=== PATIENT | female | born 1995 | race Caucasian/White ===

== ENCOUNTER 2020-12-17 13:51 | Emergency (ER) | payer OTHER ==
[2020-12-17] MEDS ORDERED: Acetaminophen/oxyCODONE 325-5 MG Tab PO STA (14:23)
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
[2020-12-17] MEDS ORDERED: Bacitracin Oint 1 GM U/D Packet TOP ONE (15:12)
[2020-12-17] MEDS ORDERED: Bacitracin Oint 1 GM U/D Packet ONE (15:13)
--- NOTE | 2020-12-19 12:16 | CR ---
Wrist Comp Min 3V Lt CLINICAL HISTORY: Injury FINDINGS: There is a transverse slightly angulated fracture of the distal radius. The soft tissue swelling
--- NOTE | 2020-12-19 12:16 | CR ---
Forearm 2V Lt CLINICAL HISTORY: Injury FINDINGS: There is a minimally angled transverse fracture of the distal radius. Ulna appears intact. Impression: Distal radial fracture
== END 2020-12-17 16:08 | disposition home or self-care (01) ==
LOC: JP.ED 13:51
DX: S52.592A Other fractures of lower end of left radius, initial encounter for closed fracture (principal); V89.2XXA Person injured in unspecified motor-vehicle accident, traffic, initial encounter
CPT/HCPCS: 29125; 73090; 73110; 99283; A9270